=== PATIENT | female | born 1985 | race Caucasian/White ===

== ENCOUNTER → 2016-05-26 | Outpatient (CLI) | payer BC, MEDICAID | LOC: MW.CHOBGYN 08:46 | PROVIDERS: ATTEND Advanced Practice Midwife | DX: R39.9 Unspecified symptoms and signs involving the genitourinary system (principal) | CPT/HCPCS: 81001; 87086; 87088; 87186 ==

== ENCOUNTER → 2016-06-02 | Outpatient (CLI) | payer BC, MEDICAID | LOC: MW.CHOBGYN 15:27 | PROVIDERS: ATTEND Advanced Practice Midwife | DX: Z34.90 Encounter for supervision of normal pregnancy, unspecified, unspecified trimester (principal) | CPT/HCPCS: 36415; 80305; 81003; 82105; 82677; 84702; 85025; 86336; 86592; 86762; 86803; 86850; 86900; 86901; 87086; 87340; 87389 ==

== ENCOUNTER → 2016-06-17 | Outpatient (CLI) | payer BC, MEDICAID ==
--- NOTE | 2016-06-18 15:13 | US ---
EXAM DATE: 06/17/16 PATIENT'S AGE: 31 Patient: YOEL BLANTON Facility: [place], [place] Site . Site : 1985 Study: US Pelvis [id number] 4:11:47 PM Ordering Physician: Moises Negron Final Report: INDICATION: Evaluate anatomy. TECHNIQUE: Real time hinojosa scale imaging of the fetus was performed as well as color Doppler analysis of the umbilical vessels. FINDINGS: Sonographic imaging demonstrates a single living intrauterine gestation. Fetus demonstrates a regular cardiac rate of 136 beats per minute. Fetus has a cephalic orientation. The placenta lies posterior without evidence of placenta previa. Amniotic fluid volume appears normal. The cervix is closed and measures cm in length. The composite ultrasound gestational age is calculated at 20 weeks 3 days with an estimated sonographic due date of 11/01/2016. The estimated weight is 355 grams which lies at the <3 percentile. LMP: 12/30/2015, gestational age by LMP 24 weeks 2 days with ELOISE 10/05/2016. The following biometric measurements were obtained: Biparietal diameter: 4.8 cm / 20 weeks 4 days. Head circumference: 18.1 cm / 20 weeks 4 days. Abdominal circumference: 15.6 cm / 20 weeks 6 days. Femur length: 3.2 cm / 20 weeks 1 day. Humerus length: 3 cm / 19 weeks 6 days. On anatomic survey, there is a normal appearance of the cerebral ventricles, cisterna magna and cerebellum. The nose, lips, and facial profile appear normal. The cervical, thoracic and lumbar spine are well visualized and appear normal. There is a normal four-chamber heart view and the left and right ventricular outflow tracts appear normal. diaphragm, stomach, kidneys and bladder appear normal. There is a normal three-vessel cord and cord insertion site. The four extremities appear normal. IMPRESSION: Single live intrauterine with gestational age by today`s ultrasound of 20 weeks 3 days with ELOISE of 11/01/2016. Dates are discordant with clinical dates. LMP is 12/30/2015 with gestational age of 24 weeks 2 days with ELOISE of . No gross anomalies seen. Dictated by Jayne Valentino MD @ Jun 18 2016 9:33AM (Electronic Signature) Report Signed by Proxy and Original Signed Document filed in the Medical Record. SHREYA
== END ==
LOC: MW.US 14:10
PROVIDERS: ATTEND Advanced Practice Midwife
DX: Z34.92 Encounter for supervision of normal pregnancy, unspecified, second trimester (principal); Z3A.20 20 weeks gestation of pregnancy
CPT/HCPCS: 76805; 76805-26

== ENCOUNTER 2016-10-30 05:20 | Inpatient (IN) | payer BC, MEDICAID ==
[~2016-10-30 05:20] MED LIST: Citric Acid/Sodium Citrate Solution 30 ML Cup PO SCH; Sodium Chloride 0.9% 10 ML Syringe FLUSH PRN; Sodium Chloride 0.9% 2.5 ML Syringe FLUSH PRN; ceFAZolin 2 GM in Premix Bag 1 BAG IV ONE
[2016-10-30] MEDS: Lactated Ringers 1,000 ML IV SCH ×3 (05:57→07:57)
[2016-10-30] MEDS ORDERED: Morphine PF 10 MG/10 ML SDV ONE (07:23)
[2016-10-30] MEDS ORDERED: Octyl 2-Cyanoacrylate 1 Tube ONE (07:36)
[2016-10-30] MEDS ORDERED: Oxytocin/Lactated Ringers 30 UNIT/500 ML BAG ONE (07:36)
--- NOTE | 2016-10-30 07:55 | PCM.PREANE ---
Preanesthetic Assessment - Procedure Proposed Procedure: section; second - Anesthesia/Transfusion/Family Hx Anesthesia History: Prior Anesthesia Without Reaction (may have required general after baby delivery under epidural by her history at [facility]) Family History of Anesthesia Reaction: No Transfusion History: No Prior Transfusion(s) Intubation History: Unknown - Review of Systems General: No Symptoms Pulmonary: Other (hx of asthma as child, no adult episodes) Cardiovascular: No Symptoms Gastrointestinal: Other (heartburn with only, intermittent) Neurological: No Symptoms Other: Reports: None - Physical Assessment NPO Status Date: 10/29/16 NPO Status Time: 23:00 Height: 5 ft Weight: 171 lb ASA Class: 2 Mental Status: Alert & Oriented x3 Airway Class: Mallampati = 1 Dentition: Reports: Normal Dentition Thyro-Mental Finger Breadths: 3 Mouth Opening Finger Breadths: 3 ROM/Head Extension: Full Lungs: Clear to Auscultation, Normal Respiratory Effort Cardiovascular: Regular Rate, Regular Rhythm, No Murmurs - Lab Values: Laboratory Last Values WBC 7.05 K/uL (4.0-11.0) 10/29/16 10:09 RBC 4.08 M/uL (4.30-5.90) L 10/29/16 10:09 Hgb 11.1 g/dL (12.0-16.0) L 10/29/16 10:09 Hct 34.2 % (36.0-46.0) L 10/29/16 10:09 MCV 83.8 fL (80.0-98.0) 10/29/16 10:09 MCH 27.2 pg (27.0-32.0) 10/29/16 10:09 MCHC 32.5 g/dL (31.0-37.0) 10/29/16 10:09 RDW Std Deviation 44.4 fl (28.0-62.0) 10/29/16 10:09 RDW Coeff of Leonarda 15 % (11.0-15.0) 10/29/16 10:09 Plt Count 140 K/uL (150-400) L 10/29/16 10:09 MPV 11.70 fL (7.40-12.00) 10/29/16 10:09 Nucleated RBC % 0.0 /100WBC 10/29/16 10:09 Nucleated RBCs # 0 K/uL 10/29/16 10:09 Blood Type A POSITIVE 10/29/16 10:09 Antibody Screen NEGATIVE 10/29/16 10:09 - Allergies Allergies/Adverse Reactions: Allergies Allergy/AdvReac Type Severity Reaction Status Date / Time shellfish derived Allergy Hives Verified 10/30/16 06:19 - Blood Blood Available: Yes Product(s) Available: PRBC (T and S) - Anesthesia Plan Free Text/Narrative:: dad to be in OR; spinal anesthetic - Acknowledgements Anesthesia Type Planned: Spinal (attempt to avoid tatoo with spinal) Pt an Appropriate Candidate for the Planned Anesthesia: Yes Alternatives and Risks of Anesthesia Discussed w Pt/Guardian: Yes Pt/Guardian Understands and Agrees with Anesthesia Plan: Yes PreAnesthesia Questionnaire HEENT History: Reports: None Respiratory History: Reports: Asthma, Other (See Below) Other Respiratory History: asthma as a child Gastrointestinal History: Reports: Other (See Below) Other Gastrointestinal History: heartburn only with Genitourinary History: Reports: 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: Musculoskeletal History: Reports: Fracture Other Musculoskeletal History: fx collarbone, left arm, wrist and elbow Endocrine/Metabolic History: Reports: Obesity/BMI 30+ - Past Surgical History HEENT Surgical History: Reports: Tonsillectomy, Other (See Below) Other HEENT Surgeries/Procedures: surgery to left ear x5 Female Surgical History: Reports: Section Musculoskeletal Surgical History: Reports: Other (See Below) Other Musculoskeletal Surgeries/Procedures:: surgery for fx left arm, wrist and elbow Dermatological Surgical History: Reports: Skin Graft - SUBSTANCE USE Smoking Status *Q: Former Smoker Days Per Week of Alcohol Use: 0 Recreational Drug Use History: No - HOME MEDS Home Medications: Home Meds PNV95/Ferrous Fumarate/FA [ Vitamins Tablet] 1 tab PO DAILY 10/28/16 [ History] - CURRENT (IN HOUSE) MEDS Current Meds: Current Medications Citric Acid/Sodium Citrate (Bicitra Solution) 30 ml PO .ONCE RAUDEL Last Admin: 10/30/16 07:38 Dose: 30 ml Lactated Ringer's (Ringers, Lactated) 1,000 mls @ 500 mls/hr IV .BOLUS RAUDEL Last Admin: 10/30/16 07:06 Dose: 500 mls/hr Sodium Chloride (Saline Flush) 10 ml FLUSH ASDIRECTED PRN PRN Reason: Keep Vein Open Sodium Chloride (Saline Flush) 2.5 ml FLUSH ASDIRECTED PRN PRN Reason: Keep Vein Open Discontinued Medications Cefazolin Sodium/Dextrose 2 gm (/ Premix) 50 mls @ 100 mls/hr IV ONETIME ONE Stop: 10/29/16 09:40 Oxytocin/Lactated Ringer's (Pitocin In Lr 30 Units/500 Ml) Confirm Administered Dose 30 unit in 500 mls @ as directed .ROUTE .STK-MED ONE Stop: 10/30/16 07:37 Morphine Sulfate (Duramorph Pf) Confirm Administered Dose 10 mg .ROUTE .STK-MED ONE Stop: 10/30/16 07:24 Octyl Cyanoacrylate (Dermabond Advance) Confirm Administered Dose 1 applic .ROUTE .STK-MED ONE Stop: 10/30/16 07:37
[2016-10-30] MEDS ORDERED: ePHEDrine 50 MG/ML SDV ONE (08:28)
[2016-10-30] MEDS ORDERED: Phenylephrine/Normal Saline 100 MCG/ML 10 ML Syringe ONE (08:28)
--- NOTE | 2016-10-30 08:45 | PCM.LDHP ---
L&D History of Present Illness - General Date of Service: 10/30/16 Admit Problem/Dx: Patient Status Order with Admit Dx/Problem 10/29/16 09:11 Patient Status [ADT] Routine Admission Diagnosis/Problem Admission Diagnosis/Problem Source of Information: Patient History Limitations: Reports: No Limitations - History of Present Illness Improves with: Reports: None Worsens with: Reports: None Associated Symptoms: Reports: N - Related Data Allergies/Adverse Reactions: Allergies Allergy/AdvReac Type Severity Reaction Status Date / Time shellfish derived Allergy Hives Verified 10/30/16 06:19 Home Medications: Home Meds PNV95/Ferrous Fumarate/FA [ Vitamins Tablet] 1 tab PO DAILY 10/28/16 [ History] Past Medical History HEENT History: Reports: None Respiratory History: Reports: Asthma, Other (See Below) Other Respiratory History: asthma as a child Gastrointestinal History: Reports: Other (See Below) Other Gastrointestinal History: heartburn only with Genitourinary History: Reports: 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: Musculoskeletal History: Reports: Fracture Other Musculoskeletal History: fx collarbone, left arm, wrist and elbow Endocrine/Metabolic History: Reports: Obesity/BMI 30+ - Past Surgical History HEENT Surgical History: Reports: Tonsillectomy, Other (See Below) Other HEENT Surgeries/Procedures: surgery to left ear x5 Female Surgical History: Reports: Section Musculoskeletal Surgical History: Reports: Other (See Below) Other Musculoskeletal Surgeries/Procedures:: surgery for fx left arm, wrist and elbow Dermatological Surgical History: Reports: Skin Graft Social & Family History - Family History OBGYN: Reports: Musculoskeletal: Reports: Arthritis Oncologic: Reports: Breast - Tobacco Use Smoking Status *Q: Former Smoker Years of Tobacco use: 10 Used Tobacco, but Quit: Yes Month Tobacco Last Used: 09/2015 - Alcohol Use Days Per Week of Alcohol Use: 0 - Recreational Drug Use Recreational Drug Use: No H&P Review of Systems - Review of Systems: Review Of Systems: See Below General: Reports: No Symptoms HEENT: Reports: No Symptoms Pulmonary: Reports: No Symptoms Cardiovascular: Reports: No Symptoms Gastrointestinal: Reports: No Symptoms Genitourinary: Reports: No Symptoms Musculoskeletal: Reports: No Symptoms Skin: Reports: No Symptoms Psychiatric: Reports: No Symptoms Neurological: Reports: No Symptoms Hematologic/Lymphatic: Reports: No Symptoms Immunologic: Reports: No Symptoms L&D Exam - Exam Exam: See Below - Vital Signs Weight: 77.564 kg - OB Specific Fundal Height In cm: 38 Contraction Intensity: Mild Movement: Active Heart Tones: Present Presentation: Vertex - Exam General: Alert, Oriented HEENT: PERRLA, Conjunctiva Clear, EACs Clear, EOMI, Hearing Intact, Mucosa Moist & [place], Nares Patent, Normal Nasal Septum, Posterior Pharynx Clear, TMs Clear Neck: Supple, Trachea Midline Lungs: Clear to Auscultation, Normal Respiratory Effort Cardiovascular: Regular Rate, Regular Rhythm GI/Abdominal Exam: Normal Bowel Sounds, Soft, Non-Tender, No Organomegaly, No Distention, No Abnormal Bruit, No Mass, Pelvis Stable Rectal Exam: Normal Exam, Normal Rectal Tone Genitourinary: Normal external exam, Normal bimanual exam, Normal speculum exam Back Exam: Normal Inspection, Full Range of Motion Extremities: Normal Inspection, Normal Range of Motion, Non-Tender, No Pedal Edema, Normal Capillary Refill Skin: Warm, Dry, Intact Neurological: Cranial Nerves Intact, Reflexes Equal Bilateral Psychiatric: Alert, Normal Affect, Normal Mood - Patient Data Lab Results Last 24 hrs: Laboratory Results - last 24 hr 10/29/16 10/29/16 Range/Units 10:09 10:09 WBC 7.05 (4.0-11.0) K/uL RBC 4.08 L (4.30-5.90) M/uL Hgb 11.1 L (12.0-16.0) g/dL Hct 34.2 L (36.0-46.0) % MCV 83.8 (80.0-98.0) fL MCH 27.2 (27.0-32.0) pg MCHC 32.5 (31.0-37.0) g/dL RDW Std Deviation 44.4 (28.0-62.0) fl RDW Coeff of Leonarda 15 (11.0-15.0) % Plt Count 140 L (150-400) K/uL MPV 11.70 (7.40-12.00) fL Nucleated RBC % 0.0 /100WBC Nucleated RBCs # 0 K/uL Blood Type A POSITIVE Antibody Screen NEGATIVE Result Diagrams: 10/29/16 10:09 Problem List Initiated/Reviewed/Updated: Yes Orders Last 24hrs: Active Orders 24 hr Category Date Time Status Patient Status [ADT] Routine ADT 10/29/16 09:11 Active Non Stress Test [RC] PER UNIT ROUTINE Care 10/29/16 09:11 Active Procedure Site Prep Instruct [RC] ASDIRECTED Care 10/29/16 09:11 Active Up ad Negrita [RC] ASDIRECTED Care 10/29/16 09:11 Active Verify Patient Consent Obtain [RC] ASDIRECTED Care 10/29/16 09:11 Active Vital Signs [RC] PER UNIT ROUTINE Care 10/29/16 09:11 Active Citric Acid/Sodium Citrate [Bicitra Solution] Med 10/29/16 09:15 Active 30 ml PO .ONCE Lactated Ringers [Ringers, Lactated] 1,000 ml Med 10/29/16 09:15 Active IV .BOLUS Sodium Chloride 0.9% [Saline Flush] Med 10/29/16 09:11 Active 10 ml FLUSH ASDIRECTED PRN Sodium Chloride 0.9% [Saline Flush] Med 10/29/16 09:11 Active 2.5 ml FLUSH ASDIRECTED PRN Peripheral IV Insertion Adult [OM.PC] Routine Oth 10/29/16 09:11 Ordered Schedule Procedure [COMM] Per Unit Routine Oth 10/29/16 09:11 Ordered Resuscitation Status Routine Resus Stat 10/29/16 09:11 Ordered Medication Orders Citric Acid/Sodium Citrate (Bicitra Solution) 30 ml PO .ONCE RAUDEL Last Admin: 10/30/16 07:38 Dose: 30 ml Lactated Ringer's (Ringers, Lactated) 1,000 mls @ 500 mls/hr IV .BOLUS RAUDEL Last Admin: 10/30/16 07:57 Dose: 500 mls/hr Infusion: 10/30/16 07:57 Dose: 500 mls/hr Admin: 10/30/16 07:06 Dose: 500 mls/hr Infusion: 10/30/16 07:06 Dose: 500 mls/hr Admin: 10/30/16 05:57 Dose: 500 mls/hr Sodium Chloride (Saline Flush) 10 ml FLUSH ASDIRECTED PRN PRN Reason: Keep Vein Open Sodium Chloride (Saline Flush) 2.5 ml FLUSH ASDIRECTED PRN PRN Reason: Keep Vein Open Assessment/Plan Comment:: Term admitted for elective repeat C/Section
[2016-10-30] MEDS ORDERED: Ondansetron 4 MG/2 ML SDV ONE (08:46)
[2016-10-30] MEDS ORDERED: Bisacodyl 10 MG Supp RECTAL PRN (08:48)
[2016-10-30] MEDS ORDERED: diphenhydrAMINE 50 MG/ML SDV IVPUSH PRN (08:48)
[2016-10-30] MEDS ORDERED: Ondansetron 4 MG/2 ML SDV IV PRN (08:48)
[2016-10-30] MEDS ORDERED: Lanolin 100% Cream 7 GM Tube TOP PRN (08:48)
--- NOTE | 2016-10-30 08:48 | PCM.OPNOTE ---
- General Post-Op/Procedure Note Date of Surgery/Procedure: 10/30/16 Pre Op Diagnosis: Term , Elective repeat C/section Post-Op Diagnosis: Same Anesthesia Technique: Spinal Primary Surgeon: Francisco Andersen Medical Care Evaluation Specialist: Leigh Moses EBL in mLs: 700 Complications: None Condition: Good
[2016-10-30] MEDS ORDERED: Lactated Ringers 1,000 ML IV SCH (09:00)
[2016-10-30] MEDS ORDERED: Nalbuphine 10 MG/1 ML Vial IVPUSH PRN (09:11)
[2016-10-30] MEDS ORDERED: Naloxone 0.4 MG/ML Syringe IVPUSH PRN (09:11)
[2016-10-30] MEDS ORDERED: Acetaminophen/oxyCODONE 325-5 MG Tab PO PRN (09:13)
[2016-10-30] MEDS ORDERED: fentaNYL 100 MCG/2 ML SDV IVPUSH PRN (09:13)
[2016-10-30] MEDS: Ketorolac 30 MG/ML SDV IVPUSH SCH ×3 (09:32→21:31)
--- NOTE | 2016-10-30 09:49 | PCM.POSTAN ---
POST ANESTHESIA ASSESSMENT - MENTAL STATUS Mental Status: Alert, Oriented - RESPIRATORY Respiratory Status: Respiratory Rate WNL, Airway Patent, O2 Saturation Stable - CARDIOVASCULAR CV Status: Pulse Rate WNL, Blood Pressure Stable - GASTROINTESTINAL GI Status: No Symptoms - PAIN Pain Score: 0 - POST OP HYDRATION Hydration Status: Adequate & Stable
--- NOTE | 2016-10-30 10:38 | PCM48HPAN ---
Post Anesthesia Note - EVALUATION WITHIN 48HRS OF ANESTHETIC Vital Signs in Normal Range: Yes Patient Participated in Evaluation: Yes Respiratory Function Stable: Yes Airway Patent: Yes Cardiovascular Function Stable: Yes Hydration Status Stable: Yes Pain Control Satisfactory: Yes Nausea and Vomiting Control Satisfactory: Yes Mental Status Recovered: Yes - COMMENTS/OBSERVATIONS Free Text/Narrative:: Spinal effects receded well without any problem noted. Expect her analgesia is due to the neuroaxis morphine. She is happy with her care. Baby doing well in her mother's arms.
[2016-10-30] MEDS: diphenhydrAMINE 50 MG/ML SDV IVPUSH PRN (11:50)
--- NOTE | 2016-10-30 13:38 | OR ---
SURGEON: Francisco Andersen MD DATE OF PROCEDURE: 10/30/2016 PREOPERATIVE DIAGNOSES: Term , previous section, admitted for elective repeat section. POSTOPERATIVE DIAGNOSES: Term , previous section, admitted for elective repeat section. OPERATION PERFORMED: Low transverse section. ROOM SERVICE BELLHOP: MARKUS Aguilera. ANESTHESIA: Spinal. ANESTHETISTS: Janine Ramos and Dr. Allen. ESTIMATED BLOOD LOSS: 700 mL. COMPLICATION: None. FINDINGS: Male fetus. score reported to be 8 and 9. Normal uterus, tubes, and ovaries. Fetus was in cephalic position. INDICATION FOR SURGERY: This patient is term. She has had previous section. She is admitted for elective repeat section. PROCEDURE IN DETAIL: The patient was brought to the OR, properly identified, and after adequate level of spinal anesthesia, with a Arriaza catheter, a time-out is taken and the patient was prepped and draped in sterile fashion as usual. A low transverse Pfannenstiel skin incision through the old scar was done. Shoaib's fascia and rectus fascia were opened in direction of the incision. The 2 recti muscles were and peritoneal cavity was entered. A low transverse uterine incision is done, extended manually with the hand. The fetus was in a vertex position and delivered without any problems. He cried immediately. score reported to be later on, 8 and 9. The placenta was delivered spontaneously, complete, and intact and then repair of the lower uterine segment was done with 2-0 Vicryl continuous interlocking in 2 layers. Reperitonealization of the lower uterine segment done with 3-0 Vicryl continuous and then the peritoneal cavity evacuated completely from all blood and blood clot and closed with 3-0 Vicryl continuous and the rectus fascia is closed with #1 PDS double strand continuous and the Shoaib's fascia with 3-0 Vicryl continuous and skin with 5-0 monofilamentous in subcuticular fashion and Dermabond. Instrument and sponge count was correct. The patient tolerated the procedure well, went to recovery room in stable general condition. MARLENA / HUBERT /[id number]
[2016-10-30] MEDS: Docusate Sodium 100 MG Cap PO SCH (21:32)
[2016-10-31] MEDS: diphenhydrAMINE 50 MG/ML SDV IVPUSH PRN (01:21)
[2016-10-31] MEDS: Docusate Sodium 100 MG Cap PO SCH ×3 (01:45→21:53)
[2016-10-31] MEDS: Ketorolac 30 MG/ML SDV IVPUSH SCH ×2 (03:01→09:15)
--- NOTE | 2016-10-31 08:11 | PCM.PNPP ---
- General Info Date of Service: 10/31/16 Functional Status: Reports: Pain Controlled - Review of Systems General: Reports: No Symptoms HEENT: Reports: No Symptoms Pulmonary: Reports: No Symptoms Cardiovascular: Reports: No Symptoms Gastrointestinal: Reports: No Symptoms Genitourinary: Reports: No Symptoms Musculoskeletal: Reports: No Symptoms Skin: Reports: No Symptoms Neurological: Reports: No Symptoms Psychiatric: Reports: No Symptoms - General Info Date of Service: 10/31/16 - Patient Data Vital Signs - Most Recent: Last Vital Signs Temp 36.6 C 10/31/16 04:00 Pulse 76 10/31/16 04:00 Resp 16 10/31/16 06:00 BP 103/59 L 10/31/16 04:00 Pulse Ox 98 10/31/16 06:00 Weight - Most Recent: 77.564 kg I&O - Last 24 Hours: Intake & Output 10/30/16 10/31/16 10/31/16 22:59 06:59 14:59 Intake Total 1100 Output Total 700 Balance 400 Lab Results - Last 24 Hours: Laboratory Results - last 24 hr 10/31/16 Range/Units 05:17 Hgb 8.9 L (12.0-16.0) g/dL Hct 28.2 L (36.0-46.0) % Med Orders - Current: Current Medications Bisacodyl (Dulcolax) 10 mg RECTAL .ONCE PRN PRN Reason: Constipation Citric Acid/Sodium Citrate (Bicitra Solution) 30 ml PO .ONCE RAUDEL Last Admin: 10/30/16 07:38 Dose: 30 ml Diphenhydramine HCl (Benadryl) 25 mg IVPUSH Q6H PRN PRN Reason: Itching or Nausea Diphenhydramine HCl (Benadryl) 25 mg IVPUSH Q4H PRN PRN Reason: Itching Stop: 10/31/16 09:12 Last Admin: 10/31/16 01:21 Dose: 25 mg Docusate Sodium (Colace) 100 mg PO BID RAUDEL Last Admin: 10/31/16 01:45 Dose: Not Given Emollient Ointment (Lansinoh Hpa) 0 gm TOP ASDIRECTED PRN PRN Reason: Sore Nipples Fentanyl (Sublimaze) 25 - 50 mcg IVPUSH Q30M PRN PRN Reason: Pain Lactated Ringer's (Ringers, Lactated) 1,000 mls @ 500 mls/hr IV .BOLUS [facility] Last Admin: 10/30/16 07:57 Dose: 500 mls/hr Lactated Ringer's (Ringers, Lactated) 1,000 mls @ 125 mls/hr IV ASDIRECTED [facility] Last Admin: 10/30/16 10:46 Dose: 125 mls/hr Ibuprofen (Motrin) 800 mg PO Q8H PRN PRN Reason: mild pain or fever Ketorolac Tromethamine (Toradol) 30 mg IVPUSH Q6H [facility] Stop: 10/31/16 09:01 Last Admin: 10/31/16 03:01 Dose: 30 mg Nalbuphine HCl (Nubain) 5 mg IVPUSH Q3H PRN PRN Reason: Pruritis Stop: 10/31/16 09:12 Naloxone HCl (Narcan) 0.1 mg IVPUSH ONETIME PRN PRN Reason: Other Stop: 10/31/16 09:12 Ondansetron HCl (Zofran) 4 mg IV Q4H PRN PRN Reason: Nausea/Vomiting Oxycodone/Acetaminophen (Percocet 325-5 Mg) 1 tab PO Q4H PRN PRN Reason: Pain (moderate 4-6) Oxycodone/Acetaminophen (Percocet 325-5 Mg) 2 tab PO Q4H PRN PRN Reason: Pain (moderate 4-6) Oxycodone/Acetaminophen (Percocet 325-5 Mg) 1 - 2 tab PO Q6H PRN PRN Reason: Pain Stop: 11/01/16 14:00 Sodium Chloride (Saline Flush) 10 ml FLUSH ASDIRECTED PRN PRN Reason: Keep Vein Open Sodium Chloride (Saline Flush) 2.5 ml FLUSH ASDIRECTED PRN PRN Reason: Keep Vein Open Discontinued Medications Ephedrine Sulfate (Ephedrine Sulfate) Confirm Administered Dose 50 mg .ROUTE .STK-MED ONE Stop: 10/30/16 08:29 Cefazolin Sodium/Dextrose 2 gm (/ Premix) 50 mls @ 100 mls/hr IV ONETIME ONE Stop: 10/29/16 09:40 Oxytocin/Lactated Ringer's (Pitocin In Lr 30 Units/500 Ml) Confirm Administered Dose 30 unit in 500 mls @ as directed .ROUTE .STK-MED ONE Stop: 10/30/16 07:37 Last Admin: 10/31/16 01:44 Dose: Not Given Morphine Sulfate (Duramorph Pf) Confirm Administered Dose 10 mg .ROUTE .STK-MED ONE Stop: 10/30/16 07:24 Octyl Cyanoacrylate (Dermabond Advance) Confirm Administered Dose 1 applic .ROUTE .STK-MED ONE Stop: 10/30/16 07:37 Ondansetron HCl (Zofran) Confirm Administered Dose 4 mg .ROUTE .STK-MED ONE Stop: 10/30/16 08:47 Phenylephrine HCl (Phenylephrine In Ns 100 Mcg/Ml) Confirm Administered Dose 1 mg .ROUTE .STK-MED ONE Stop: 10/30/16 08:29 - Infant Interaction Disposition, : in Room with Family Interaction: Holding Infant Feeding: Attempted ; Nursed Fair/Poor Support Person: , Significant Other - Recovery Exam Fundal Tone: Firm Fundal Level: At Umbilicus Fundal Placement: Midline Lochia Amount: Scant Lochia Color: Rubra/Red Perineum Description: Intact, Minimal Bruising/Swelling Bladder Status: Indwelling Catheter in Place Urinary Elimination: Indwelling Catheter - Exam General: Alert, Oriented HEENT: Pupils Equal Neck: Supple Lungs: Clear to Auscultation, Normal Respiratory Effort Cardiovascular: Regular Rate, Regular Rhythm GI/Abdominal Exam: Normal Bowel Sounds, Soft, Non-Tender, No Organomegaly, No Distention, No Abnormal Bruit, No Mass, Pelvis Stable Extremities: Normal Inspection, Normal Range of Motion, Non-Tender, No Pedal Edema, Normal Capillary Refill Skin: Warm, Dry, Intact Wound/Incisions: Healing Well Neurological: No New Focal Deficit Psy/Mental Status: Alert, Normal Affect, Normal Mood - Problem List Review Problem List Initiated/Reviewed/Updated: Yes - My Orders Last 24 Hours: My Active Orders 10/30/16 08:48 Patient Status [ADT] Routine Ambulate [RC] PER UNIT ROUTINE Communication Order [RC] PER UNIT ROUTINE Communication Order [RC] PER UNIT ROUTINE Communication Order [RC] Per Unit Routine May Shower [RC] ASDIRECTED RT Incentive Spirometry [RC] Q2HWA Acetaminophen/oxyCODONE [Percocet 325-5 MG] 1 tab PO Q4H PRN Acetaminophen/oxyCODONE [Percocet 325-5 MG] 2 tab PO Q4H PRN Bisacodyl [Dulcolax] 10 mg RECTAL .ONCE PRN Ibuprofen [Motrin] 800 mg PO Q8H PRN Lanolin [Lansinoh HPA] See Dose Instructions TOP ASDIRECTED PRN Ondansetron [Zofran] 4 mg IV Q4H PRN diphenhydrAMINE [Benadryl] 25 mg IVPUSH Q6H PRN Assess Lochia [WOMSER] Per Unit Routine Assess Uterine Involution [WOMSER] Per Unit Routine Breast Pump [WOMSER] Per Unit Routine Peripheral IV Discontinue [OM.PC] Routine Sequential Compression Device [OM.PC] Per Unit Routine 10/30/16 08:49 Antiembolic Devices [RC] PER UNIT ROUTINE 10/30/16 09:00 Docusate Sodium [Colace] 100 mg PO BID Ketorolac [Toradol] 30 mg IVPUSH Q6H Lactated Ringers [Ringers, Lactated] 1,000 ml IV ASDIRECTED 10/30/16 Dinner Regular Diet [DIET] - Plan Plan:: Term admitted for elective repeat C/Section
[2016-10-31] MEDS: Acetaminophen/oxyCODONE 325-5 MG Tab PO PRN ×3 (12:09→22:26)
[2016-10-31] MEDS: Ibuprofen 800 MG Tab PO PRN (16:08)
[2016-11-01] MEDS: Ibuprofen 800 MG Tab PO PRN (02:04)
[2016-11-01] MEDS: Acetaminophen/oxyCODONE 325-5 MG Tab PO PRN ×2 (03:16→08:24)
--- NOTE | 2016-11-01 05:06 | PCM48HPAN ---
Post Anesthesia Note - EVALUATION WITHIN 48HRS OF ANESTHETIC Vital Signs in Normal Range: Yes Patient Participated in Evaluation: Yes Respiratory Function Stable: Yes Airway Patent: Yes Cardiovascular Function Stable: Yes Hydration Status Stable: Yes Pain Control Satisfactory: Yes Nausea and Vomiting Control Satisfactory: Yes Mental Status Recovered: Yes
[2016-11-01 07:53] VITALS: BP 115/59
[2016-11-01] MEDS: Docusate Sodium 100 MG Cap PO SCH (08:24)
--- NOTE | 2016-11-01 10:02 | PCM.PNPP ---
- General Info Date of Service: 11/01/16 Functional Status: Reports: Pain Controlled, Tolerating Diet, Ambulating, Urinating - Review of Systems General: Reports: No Symptoms HEENT: Reports: No Symptoms Pulmonary: Reports: No Symptoms Cardiovascular: Reports: No Symptoms Gastrointestinal: Reports: No Symptoms Genitourinary: Reports: No Symptoms Musculoskeletal: Reports: No Symptoms Skin: Reports: No Symptoms Neurological: Reports: No Symptoms Psychiatric: Reports: No Symptoms - Patient Data Vital Signs - Most Recent: Last Vital Signs Temp 37.0 C 11/01/16 07:00 Pulse 65 11/01/16 07:00 Resp 16 11/01/16 07:00 BP 115/59 L 11/01/16 07:00 Pulse Ox 98 11/01/16 07:00 Weight - Most Recent: 77.564 kg Med Orders - Current: Current Medications Bisacodyl (Dulcolax) 10 mg RECTAL .ONCE PRN PRN Reason: Constipation Citric Acid/Sodium Citrate (Bicitra Solution) 30 ml PO .ONCE [facility] Last Admin: 10/30/16 07:38 Dose: 30 ml Diphenhydramine HCl (Benadryl) 25 mg IVPUSH Q6H PRN PRN Reason: Itching or Nausea Docusate Sodium (Colace) 100 mg PO BID [facility] Last Admin: 11/01/16 08:24 Dose: 100 mg Emollient Ointment (Lansinoh Hpa) 0 gm TOP ASDIRECTED PRN PRN Reason: Sore Nipples Fentanyl (Sublimaze) 25 - 50 mcg IVPUSH Q30M PRN PRN Reason: Pain Lactated Ringer's (Ringers, Lactated) 1,000 mls @ 500 mls/hr IV .BOLUS [facility] Last Admin: 10/30/16 07:57 Dose: 500 mls/hr Lactated Ringer's (Ringers, Lactated) 1,000 mls @ 125 mls/hr IV ASDIRECTED [facility] Last Admin: 10/30/16 10:46 Dose: 125 mls/hr Ibuprofen (Motrin) 800 mg PO Q8H PRN PRN Reason: mild pain or fever Last Admin: 11/01/16 02:04 Dose: 800 mg Ondansetron HCl (Zofran) 4 mg IV Q4H PRN PRN Reason: Nausea/Vomiting Oxycodone/Acetaminophen (Percocet 325-5 Mg) 1 tab PO Q4H PRN PRN Reason: Pain (moderate 4-6) Last Admin: 10/31/16 18:21 Dose: 1 tab Oxycodone/Acetaminophen (Percocet 325-5 Mg) 2 tab PO Q4H PRN PRN Reason: Pain (moderate 4-6) Last Admin: 11/01/16 08:24 Dose: 2 tab Oxycodone/Acetaminophen (Percocet 325-5 Mg) 1 - 2 tab PO Q6H PRN PRN Reason: Pain Stop: 11/01/16 14:00 Sodium Chloride (Saline Flush) 10 ml FLUSH ASDIRECTED PRN PRN Reason: Keep Vein Open Sodium Chloride (Saline Flush) 2.5 ml FLUSH ASDIRECTED PRN PRN Reason: Keep Vein Open Discontinued Medications Diphenhydramine HCl (Benadryl) 25 mg IVPUSH Q4H PRN PRN Reason: Itching Stop: 10/31/16 09:12 Last Admin: 10/31/16 01:21 Dose: 25 mg Ephedrine Sulfate (Ephedrine Sulfate) Confirm Administered Dose 50 mg .ROUTE .STK-MED ONE Stop: 10/30/16 08:29 Cefazolin Sodium/Dextrose 2 gm (/ Premix) 50 mls @ 100 mls/hr IV ONETIME ONE Stop: 10/29/16 09:40 Oxytocin/Lactated Ringer's (Pitocin In Lr 30 Units/500 Ml) Confirm Administered Dose 30 unit in 500 mls @ as directed .ROUTE .STK-MED ONE Stop: 10/30/16 07:37 Last Admin: 10/31/16 01:44 Dose: Not Given Ketorolac Tromethamine (Toradol) 30 mg IVPUSH Q6H [facility] Stop: 10/31/16 09:01 Last Admin: 10/31/16 09:15 Dose: 30 mg Morphine Sulfate (Duramorph Pf) Confirm Administered Dose 10 mg .ROUTE .STK-MED ONE Stop: 10/30/16 07:24 Nalbuphine HCl (Nubain) 5 mg IVPUSH Q3H PRN PRN Reason: Pruritis Stop: 10/31/16 09:12 Naloxone HCl (Narcan) 0.1 mg IVPUSH ONETIME PRN PRN Reason: Other Stop: 10/31/16 09:12 Octyl Cyanoacrylate (Dermabond Advance) Confirm Administered Dose 1 applic .ROUTE .STK-MED ONE Stop: 10/30/16 07:37 Ondansetron HCl (Zofran) Confirm Administered Dose 4 mg .ROUTE .STK-MED ONE Stop: 10/30/16 08:47 Phenylephrine HCl (Phenylephrine In Ns 100 Mcg/Ml) Confirm Administered Dose 1 mg .ROUTE .STK-MED ONE Stop: 10/30/16 08:29 - Interaction Disposition, : in Room with Family Infant Interaction: Holding Feeding: Attempted ; Nursed Fair/Poor Support Person: , Significant Other - Recovery Exam Fundal Tone: Firm Fundal Level: 1 Fingerbreadths Below Umbilicus Fundal Placement: Midline Lochia Amount: Scant Lochia Color: Rubra/Red Perineum Description: Intact, Minimal Bruising/Swelling Episiotomy/Laceration: None Bladder Status: Voiding Urinary Elimination: Voided - Exam General: Alert, Oriented Neck: Supple Lungs: Clear to Auscultation, Normal Respiratory Effort Cardiovascular: Regular Rate, Regular Rhythm GI/Abdominal Exam: Normal Bowel Sounds, Soft, Non-Tender, No Organomegaly, No Distention, No Abnormal Bruit, No Mass, Pelvis Stable Extremities: Normal Inspection, Normal Range of Motion, Non-Tender, No Pedal Edema, Normal Capillary Refill Skin: Warm, Dry, Intact Wound/Incisions: Healing Well Neurological: No New Focal Deficit Psy/Mental Status: Alert, Normal Affect, Normal Mood - Problem List & Annotations (1) delivery delivered SNOMED Code(s): 053160995 Code(s): O82 - ENCOUNTER FOR DELIVERY WITHOUT INDICATION Status: Acute Current Visit: Yes - Problem List Review Problem List Initiated/Reviewed/Updated: Yes - Assessment Assessment:: POD#2 after repeat low transverse . Ambulating without difficulty, denies dizziness or shortness of breath minimal lochia. Would like to go home today. - Plan Plan:: Stable after repeat appropriate anemia, asymptomatic, will use OTC iron supplement, continue while .
--- NOTE | 2016-11-01 10:08 | PCM.DCSUM1 ---
Discharge Summary - Hospital Course Free Text/Narrative:: Admitted for elective repeat at 39 weeks gestation, complicated repeat low transverse . Anemia post op was asymptomatic and drop in hemoglobin was appropriate from baseline. She had normal vitals through her course and breastfed without difficulty. - Discharge Data Discharge Date: 11/01/16 Discharge Disposition: Home, Self-Care 01 Condition: Good - Discharge Diagnosis/Problem(s) (1) delivery delivered SNOMED Code(s): 383965429 ICD Code: O82 - ENCOUNTER FOR DELIVERY WITHOUT INDICATION Status: Acute Current Visit: Yes - Patient Summary/Data Operative Procedure(s) Performed: repeat low transverse Complications: None Known. Recommended Follow-up Testing/Procedures: as schedule with Dr. Andersen for wound check and appointment. - Patient Instructions Diet: Regular Diet as Tolerated Activity: No Strenuous Activities, Rest and Relax Today Driving: Do Not Drive (for 2 weeks) Showering/Bathing: May Shower Wound/Incision Care: Keep Operative Site/Wound Site Clean and Dry Notify Provider of: Fever, Increased Pain, Swelling and Redness, Nausea and/or Vomiting Other/Special Instructions: nothing per vagina for 6 weeks, continue vitamins while , use over the counter iron supplement daily as tolerated. - Discharge Plan Home Medications: Home Meds PNV95/Ferrous Fumarate/FA [ Vitamins Tablet] 1 tab PO DAILY 10/28/16 [ History] Referrals: Francisco Andersen MD [Physician] - 11/11/16 10:45 am (6 week follow up on 12-16-16 at 1:30 pm) - Discharge Summary/Plan Comment DC Time >30 min.: No - Patient Data Vitals - Most Recent: Last Vital Signs Temp 37.0 C 11/01/16 07:00 Pulse 65 11/01/16 07:00 Resp 16 11/01/16 07:00 BP 115/59 L 11/01/16 07:00 Pulse Ox 98 11/01/16 07:00 Weight - Most Recent: 77.564 kg Med Orders - Current: Current Medications Bisacodyl (Dulcolax) 10 mg RECTAL .ONCE PRN PRN Reason: Constipation Citric Acid/Sodium Citrate (Bicitra Solution) 30 ml PO .ONCE [facility] Last Admin: 10/30/16 07:38 Dose: 30 ml Diphenhydramine HCl (Benadryl) 25 mg IVPUSH Q6H PRN PRN Reason: Itching or Nausea Docusate Sodium (Colace) 100 mg PO BID REPLACED BY [facility] Last Admin: 11/01/16 08:24 Dose: 100 mg Emollient Ointment (Lansinoh Hpa) 0 gm TOP ASDIRECTED PRN PRN Reason: Sore Nipples Fentanyl (Sublimaze) 25 - 50 mcg IVPUSH Q30M PRN PRN Reason: Pain Lactated Ringer's (Ringers, Lactated) 1,000 mls @ 500 mls/hr IV .BOLUS REPLACED BY [facility] Last Admin: 10/30/16 07:57 Dose: 500 mls/hr Lactated Ringer's (Ringers, Lactated) 1,000 mls @ 125 mls/hr IV ASDIRECTED REPLACED BY [facility] Last Admin: 10/30/16 10:46 Dose: 125 mls/hr Ibuprofen (Motrin) 800 mg PO Q8H PRN PRN Reason: mild pain or fever Last Admin: 11/01/16 02:04 Dose: 800 mg Ondansetron HCl (Zofran) 4 mg IV Q4H PRN PRN Reason: Nausea/Vomiting Oxycodone/Acetaminophen (Percocet 325-5 Mg) 1 tab PO Q4H PRN PRN Reason: Pain (moderate 4-6) Last Admin: 10/31/16 18:21 Dose: 1 tab Oxycodone/Acetaminophen (Percocet 325-5 Mg) 2 tab PO Q4H PRN PRN Reason: Pain (moderate 4-6) Last Admin: 11/01/16 08:24 Dose: 2 tab Oxycodone/Acetaminophen (Percocet 325-5 Mg) 1 - 2 tab PO Q6H PRN PRN Reason: Pain Stop: 11/01/16 14:00 Sodium Chloride (Saline Flush) 10 ml FLUSH ASDIRECTED PRN PRN Reason: Keep Vein Open Sodium Chloride (Saline Flush) 2.5 ml FLUSH ASDIRECTED PRN PRN Reason: Keep Vein Open Discontinued Medications Diphenhydramine HCl (Benadryl) 25 mg IVPUSH Q4H PRN PRN Reason: Itching Stop: 10/31/16 09:12 Last Admin: 10/31/16 01:21 Dose: 25 mg Ephedrine Sulfate (Ephedrine Sulfate) Confirm Administered Dose 50 mg .ROUTE .STK-MED ONE Stop: 10/30/16 08:29 Cefazolin Sodium/Dextrose 2 gm (/ Premix) 50 mls @ 100 mls/hr IV ONETIME ONE Stop: 10/29/16 09:40 Oxytocin/Lactated Ringer's (Pitocin In Lr 30 Units/500 Ml) Confirm Administered Dose 30 unit in 500 mls @ as directed .ROUTE .STK-MED ONE Stop: 10/30/16 07:37 Last Admin: 10/31/16 01:44 Dose: Not Given Ketorolac Tromethamine (Toradol) 30 mg IVPUSH Q6H [facility] Stop: 10/31/16 09:01 Last Admin: 10/31/16 09:15 Dose: 30 mg Morphine Sulfate (Duramorph Pf) Confirm Administered Dose 10 mg .ROUTE .STK-MED ONE Stop: 10/30/16 07:24 Nalbuphine HCl (Nubain) 5 mg IVPUSH Q3H PRN PRN Reason: Pruritis Stop: 10/31/16 09:12 Naloxone HCl (Narcan) 0.1 mg IVPUSH ONETIME PRN PRN Reason: Other Stop: 10/31/16 09:12 Octyl Cyanoacrylate (Dermabond Advance) Confirm Administered Dose 1 applic .ROUTE .STK-MED ONE Stop: 10/30/16 07:37 Ondansetron HCl (Zofran) Confirm Administered Dose 4 mg .ROUTE .STK-MED ONE Stop: 10/30/16 08:47 Phenylephrine HCl (Phenylephrine In Ns 100 Mcg/Ml) Confirm Administered Dose 1 mg .ROUTE .STK-MED ONE Stop: 10/30/16 08:29 *Q Meaningful Use (DIS) - VTE *Q VTE Criteria *Q: - Stroke *Q Stroke Criteria *Q: - AMI *Q AMI Criteria *Q:
== END 2016-11-01 11:10 | disposition home or self-care (01) | DRG 540 ==
LOC: MW.OB 05:20
PROVIDERS: ADMIT Obstetrics & Gynecology; ATTEND Obstetrics & Gynecology
PROC: 10D00Z1 Extraction of Products of Conception, Low, Open Approach (ICD-10-PCS; principal; 2016-10-30)
DX: O34.211 Maternal care for low transverse scar from previous cesarean delivery (principal); Z3A.39 39 weeks gestation of pregnancy; Z37.0 Single live birth
CPT/HCPCS: 01961; 36415; 85014; 85018; 85027; 86850; 86900; 86901; A9270-GY; J0690; J1200; J1885; J2270; J2405; J7120